=== PATIENT | female | born 1995 | race Caucasian/White ===

== ENCOUNTER → 2020-08-04 | Outpatient (CLI) | payer OTHER ==
[~2020-08-04] MED LIST: AMOXICILLIN500 M1 PO; FLEXERIL PO; HYDROCODONE-AP1 EAC6 PO; NOHOMEMEDICATIONS; ONDANSETRON HCL4 M2 PO; PHENERGAN 25 MG25 M1 PO
== END ==
LOC: M.ULTRA 08-03 10:30
PROVIDERS: ATTEND Registered Nurse Diabetes Educator
DX: N83.201 Unspecified ovarian cyst, right side (principal); N83.202 Unspecified ovarian cyst, left side